=== PATIENT | male | born 1985 | race Caucasian/White ===

== ENCOUNTER 2017-01-27 12:43 | Emergency (ER) | payer OTHER ==
[~2017-01-27] VITALS: Ht 185.4 cm; Wt 74.8 kg
[2017-01-27] MEDS ORDERED: CYMBALTA30 MG PO (13:03)
[2017-01-27] MEDS ORDERED: IBUPROFEN 600600 M1 PO (13:59)
[2017-01-27 14:38] VITALS: BP 120/86
== END 2017-01-27 14:39 | disposition home or self-care (01) ==
LOC: ER 12:43
DX: S70.02XA Contusion of left hip, initial encounter (principal); S40.012A Contusion of left shoulder, initial encounter; W01.0XXA Fall on same level from slipping, tripping and stumbling without subsequent striking against object, initial encounter; Y93.89 Activity, other specified; Y92.89 Other specified places as the place of occurrence of the external cause; Y99.8 Other external cause status